=== PATIENT | female | born 1990 | race Caucasian/White ===

== ENCOUNTER 2020-08-18 10:15 | Emergency (ER) | payer OTHER, SELFPAY ==
--- NOTE | ~2020-08-18 | XR_ITS ---
EXAMINATION: XR chest 2V EXAM DATE: 08/18/2020 10:58 INDICATION: Shortness of breath and cough. TECHNIQUE: Frontal and lateral projections of the chest obtained and reviewed. There is no prior booker dy for comparison. FINDINGS: The lungs are clear. There are no pleural effusions. The cardiomediastinal silhouette is within normal limits. There is no pneumothorax suspected. The bones and soft tissues are unremarkab le. IMPRESSION: No acute cardiopulmonary findings. Reviewed, dictated and finalized at location B. ER [employer]
[2020-08-18 10:24] VITALS: BP 151/93; PULSE 108; RESP 24; TEMP 36.7; O2SAT 100
--- NOTE | 2020-08-18 10:46 | ED.URI ---
HPI - URI/Sore Throat General Chief Complaint: Upper Respiratory Infection Stated Complaint: CP/SOB Time Seen by Provider: 08/18/20 10:40 Source: patient Mode of arrival: ambulatory Limitations: no limitations History of Present Illness HPI Narrative: Ann Marie Thomas is a 30 yo female with no known prior medical conditions who comes to [facility] care with complaints of shortness of breath and fatigue since . Sent for Covid testing on Sunday by [facility], no results for 5 to 7 days, will schedule for today at [place] to get bilateral results Related Data Allergies Allergy/AdvReac Type Severity Reaction Status Date / Time No Known Allergies Allergy Verified 08/18/20 10:39 Review of Systems Review of Systems: Narrative: CONSTITUTIONAL: Denies fever, chills, sweats. Has fatigue EYES: Denies visual changes, redness, discharge. ENT: Denies rhinorrhea, congestion, sore throat, otalgia. CARDIOVASCULAR: Denies chest pain, palpitations, edema. RESPIRATORY: Has shortness of breath, no wheezing, no cough GASTROINTESTINAL: Denies abdominal pain, nausea, vomiting, diarrhea. GENITOURINARY: Denies dysuria, hematuria, abnormal discharge SKIN: Denies rash or itching. NEUROLOGIC: Denies numbness, or focal weakness. PSYCHIATRIC: Denies anxiety or depression. PMFSH Past Medical History Medical History No acute medical problems Family History Family History (Updated 08/18/20 @ 10:51 by Doris Coates CNP) Other No acute medical problems Social History Social History (Updated 08/18/20 @ 10:55 by Doris Coates CNP) Smoking status: Never smoker Alcohol intake: current Comments At time of signature, I agree with nursing past medical, surgical, social and family history. There is no relevant family history pertinent to the presenting complaint. Patient's blood pressure is elevated he has no PCP set of referral to her primary care physician Exam Narrative: Exam Narrative: GENERAL: This is a well-nourished, well-developed patient, in mild distress. HEAD: normocephalic, atraumatic. EYES: Sclera clear/white. Vision is grossly intact. EARS: External ears normal, auditory canals clear and without drainage, TMs normal without perforation. Hearing grossly intact. NOSE: External nose normal without nasal discharge, nares without redness, no rhinorrhea. THROAT: Mucous membranes moist, posterior pharynx pink NECK: Neck supple, CARDIOVASCULAR: Regular rate and rhythm without murmurs, gallops, or rubs. RESPIRATORY: Clear to auscultation. Breath sounds equal bilaterally. No wheezes, rales, or rhonchi. GASTROINTESTINAL: Abdomen soft SKIN: warm, intact with no suspicious lesions or rash, good texture and turgor. NEURO: awake, alert, and oriented to person, place and time. There were no obvious focal neurologic abnormalities. Steady gait EXTREMITIES: Normal range of motion. BACK: Nontender without deformity Course Course Emergency Course: Patient came here for evaluation of shortness of breath has had cold symptoms since 1223 and was tested on Sunday with no results received as of yet Chest x-ray done - no acute cardiopulmonary findings Refer to [facility] for Covid test Started on albuterol inhaler and Claritin Vital Signs Vital signs: Vital Signs Temperature 98.1 F 08/18/20 10:24 Pulse Rate 108 H 08/18/20 10:24 Respiratory Rate 24 H 08/18/20 10:24 Blood Pressure 151/93 H 08/18/20 10:24 Pulse Oximetry 100 08/18/20 10:24 Temperature 98.1 F 08/18/20 10:24 Pulse Rate 108 H 08/18/20 10:24 Respiratory Rate 24 H 08/18/20 10:24 Blood Pressure 151/93 H 08/18/20 10:24 Pulse Oximetry 100 08/18/20 10:24 MDM - URI/Sore Throat Differential Diagnosis Differential diagnosis: Likely upper respiratory infection, viral infection and other Discharge Plan Discharge Clinical Impression: Upper respiratory infection Qualifiers: URI typ
== END 2020-08-18 11:25 | disposition home or self-care (01) ==
PROVIDERS: Emergency Provider Nurse Practitioner
DX: J06.9 Acute upper respiratory infection, unspecified (principal); Z20.828 Contact with and (suspected) exposure to other viral communicable diseases
CPT/HCPCS: 71046; 99213; G0463

== ENCOUNTER 2022-04-15 17:47 | Emergency (ER) | payer OTHER, MEDICAID, SELFPAY ==
[2022-04-15 17:52] VITALS: BP 157/95; PULSE 114; RESP 20; TEMP 36.2; O2SAT 100
[2022-04-15 17:58] VITALS: BP 157/95; PULSE 114; RESP 20; TEMP 36.2; O2SAT 100
--- NOTE | 2022-04-15 18:02 | ED.URI ---
HPI - URI/Sore Throat General Chief Complaint: Ear Stated Complaint: Left Ear Pain Time Seen by Provider: 04/15/22 18:03 Source: patient, RN notes reviewed and old records reviewed Mode of arrival: ambulatory Limitations: no limitations History of Present Illness HPI Narrative: 32-year-old female presents to the [facility] with complaints of left ear pain for the last 4 days. Has been using Q-tips. Denies any fevers. No loss of hearing. No nausea vomiting diarrhea or dizziness. Denies headaches. Has taken Tylenol with minimal relief. MD elicited complaint: other (left ear pain) Related Data Allergies Allergy/AdvReac Type Severity Reaction Status Date / Time No Known Allergies Allergy Verified 04/15/22 17:57 Review of Systems Review of Systems: All systems reviewed & are unremarkable except as noted in HPI and below Constitutional: Constitutional: Reports no additional constitutional complaints, Denies chills and Denies fever(s) Eyes: Eyes: Reports no additional eye complaints ENT: Reports as per HPI (left ear pain) Cardiovascular: Cardiovascular: Reports no additional cardiovascular complaints Respiratory: Respiratory: Reports no additional respiratory complaints Gastrointestinal: Gastrointestinal: Reports no additional gastrointestinal complaints Musculoskeletal: Musculoskeletal: Reports no additional musculoskeletal complaints Integumentary/Breasts: Skin/Breast: Reports system reviewed and no additional complaints, except as docu Neurologic: Reports system reviewed and no additional complaints, except as documented Psychiatric: Psychiatric: Reports no additional psychiatric complaints Allergic/Immunologic: Allergic/Immunologic: Reports no additional allergic/immunologic complaints PMFSH Past Medical History Medical History No acute medical problems Family History Family History Other No acute medical problems Social History Social History Smoking status: Never smoker Alcohol intake: current Comments At the time of my signature, I reviewed and agree with the nursing past medical, surgical, social, and family history. There is no relevant family history pertinent to the patient complaint. Exam Const: General: healthy appearing, no acute distress and alert Nutritional Appearance: well nourished and obese Orientation/consciousness: patient oriented x3 Limitations: no limitations HENMT: Head: normal to inspection Ears: external ears normal, TM's normal bilaterally and Abnormal EAC present erythema on the left and edema on the left; no cerumen impaction and no EA tenderness Eyes: General: appearance normal, both eyes and all related structures Conjunctivae: conjunctivae normal Pupils: Equal, round and reactive pupils present Neck: Neck: normal visual inspection, no lymphadenopathy and no meningeal signs Chest: Chest palpation & inspection: normal inspection of the chest Resp: Effort & Inspection: normal respiratory effort and no use of accessory muscles Auscultation: clear to auscultation bilaterally, no crackles, no rales, no rhonchi and no wheezes Cardio: Rate: regular rate Rhythm: regular rhythm Back/Spine/Pelvis: Cervical Spine: normal cervical lordosis Thoracic/Lumbar Spine: thoracic and lumbar spine normal to inspection Skin: General skin exam: normal color Rashes: no rashes Wounds: no wounds Neuro: General: patient oriented x3, moves all extremities, no meningeal signs and no focal motor deficits Cranial nerves: Yes Equal, round and reactive pupils present Speech: normal speech Gait exam (Neuro): Normal gait present Extrem: General: normal to inspection, full ROM and capillary refill normal Psych: Appearance: grossly normal and well kempt Mental Status: mental status grossly normal Affect: normal affect Att
== END 2022-04-15 18:14 | disposition home or self-care (01) ==
PROVIDERS: Emergency Provider Nurse Practitioner
DX: S00.412A Abrasion of left ear, initial encounter (principal); X58.XXXA Exposure to other specified factors, initial encounter
CPT/HCPCS: 99213; G0463

== ENCOUNTER 2024-05-15 08:39 | Emergency (ER) | payer OTHER, SELFPAY ==
--- NOTE | ~2024-05-15 | XR_ITS ---
XR chest 2V Ordering provider: Henny Louie NP History: 34 years Female with . cough and wheezing . Comparison: August 18, 2020 FINDINGS: MEDIASTINUM: The cardiac silhouette is not enlarged. Slightly prominent alli. LUNGS: No infiltrates, effusions or pneumothorax. OTHER: No free air under the diaphragm. IMPRESSION: No acute cardiopulmonary pathology. Reviewed, dictated and finalized at location A.
[2024-05-15 08:49] VITALS: BP 140/90; PULSE 93; RESP 20; TEMP 36.8; O2SAT 95
--- NOTE | 2024-05-15 09:05 | ED.URI ---
HPI - URI/Sore Throat General Chief Complaint: Upper Respiratory Infection Stated Complaint: cough causing hard to breathe Time Seen by Provider: 05/15/24 09:05 Source: patient Mode of arrival: ambulatory Limitations: no limitations History of Present Illness HPI Narrative: 34-year-old female presents with complaint of cough for 4 weeks. Afebrile. has not seen primary care physician for this complaint. Has tried [id number] Robitussin and DayQuil with no relief of symptoms. This morning feels short of breath. 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 today but states short of breath and felt like she needed breathing treatment. All systems reviewed and negative except as noted above. Related Data Home Medications Medication Instructions Recorded Confirmed buspirone 15 mg tablet mg 05/15/24 duloxetine 30 mg capsule,delayed mg PO 05/15/24 release escitalopram oxalate 20 mg tablet mg 05/15/24 hydroxyzine HCl 25 mg tablet mg 05/15/24 losartan 25 mg tablet mg 05/15/24 Allergies Allergy/AdvReac Type Severity Reaction Status Date / Time No Known Allergies Allergy Verified 04/15/22 17:57 Review of Systems Review of Systems: CONSTITUTIONAL: Denies fever, chills, or sweats. EYES: Denies visual changes, redness, or discharge. ENT: Denies rhinorrhea, congestion, sore throat, or otalgia. CARDIOVASCULAR: Denies chest pain, palpitations, or edema. RESPIRATORY: Reports cough and dyspnea with exertion. GASTROINTESTINAL: Denies abdominal pain, nausea, vomiting, or diarrhea. GENITOURINARY: Denies dysuria or hematuria. SKIN: Denies rash or itching. MUSCULOSKELETAL: Denies back pain, joint pain, or myalgia. NEUROLOGIC: Denies headache, numbness, or weakness. PSYCHIATRIC: Denies anxiety or depression. All other systems reviewed are negative, except as documented in HPI. [facility] Past Medical History Medical History No acute medical problems Family History Family History Other No acute medical problems Social History Social History Smoking status: Never smoker Alcohol intake: current Comments At time of signature, agree with nursing past medical, surgical, social and family history. There is no relevant family history pertinent to the presenting complaint. Exam Narrative: GENERAL: This is a well-nourished, well-developed patient, in no apparent distress. HEAD: normocephalic, atraumatic. EYES: PERRL. Sclera clear/white. Vision is grossly intact. EARS: External ears normal, auditory canals clear and without drainage, TMs normal without perforation. Hearing grossly intact. NOSE: External nose normal with no obvious nasal discharge, nares without redness, no rhinorrhea. THROAT: Mucous membranes moist, posterior pharynx clear. NECK: Neck supple, non-tender without lymphadenopathy, masses or thyromegaly. CARDIOVASCULAR: Regular rate and rhythm without murmurs, gallops, or rubs. RESPIRATORY: coarse and tight throughout all lung [place]. Breath sounds equal bilaterally. No wheezes, rales, or rhonchi. SKIN: warm, Dry, intact with no suspicious lesions or rash, good texture and turgor. NEURO: awake, alert, and oriented to person, place and time. There were no obvious focal neurologic abnormalities. EXTREMITIES: No joint tenderness, effusion, or edema noted. Course Course Level of Care: Express Care Visit Reevaluation(s) Reevaluation #1: Continues to have mildly coarse lung sounds on expiration throughout all lung [place]. Patient reporting shortness of breath improved. Vital Signs Vital signs: Vital Signs Temperature 36.8 C 05/15/24 08:49 Pulse Rate 93 05/15/24 08:49 Respiratory Rate 20 05/15/24 08:49 Blood Pressure 140/90 05/15/24 08:49 Pulse Oximetry 95 05/15/24 08:49 Oxygen
[2024-05-15] MEDS: predniSONE 20 MG TABLET 40 MG PO (09:23)
[2024-05-15] MEDS: IPRATROPIUM 0.5 MG/ALBUTEROL SULFATE 2.5 MG AMPUL.NEB 3 ML INHALATION (09:23)
== END 2024-05-15 10:05 | disposition home or self-care (01) ==
PROVIDERS: Emergency Provider Nurse Practitioner Family; PCP Physician Assistant
DX: J20.9 Acute bronchitis, unspecified (principal)
CPT/HCPCS: 71046; 99213; G0463; J7512

== ENCOUNTER 2024-08-05 17:30 | Emergency (ER) | payer OTHER, SELFPAY ==
--- NOTE | ~2024-08-05 | XR_ITS ---
EXAMINATION: XR chest 2V DATE: 08/05/2024 19:02 INDICATION: Cough and shortness of breath. TECHNIQUE: Frontal and lateral views of the chest were obtained. COMPARISON: Chest 2 views 05/15/2024 FINDINGS: A calcified left lung nodule and calcified left hilar lymph nodes are consistent with old g ranulomatous disease. No pleural effusion or pneumothorax. The heart size is normal. IMPRESSION: 1. No acute cardiopulmonary disease. Reviewed, dictated and finalized at location A. 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
[2024-08-05 17:42] VITALS: BP 145/80; PULSE 125; RESP 18; TEMP 37.8; O2SAT 96
--- NOTE | 2024-08-05 18:45 | ED_ITS ---
HPI - General Adult General Chief complaint: Upper Respiratory Infection Stated complaint: Cough/Congestion/Shortness of Breath Source: patient Mode of arrival: ambulatory Limitations: no limitations History of Present Illness HPI narrative: Patient presents for evaluation of sick symptoms for last 3 days. Her initial symptoms were sinus congestion and cough. Yesterday she developed a fever, sore throat, fatigue, SOB, nausea and vomiting. Denies any diarrhea. Her daughter currently is sick. She does not smoke. She has been taking mucinex for her symptoms. She has a lung nodule and is under the care of pulmonology. She states her imaging showed stability of the nodule in May of this year so decision was made to space out her serial imaging further. Related Data Home Medications ?Medication ?Instructions ?Recorded ?Confirmed ?Last Taken ?Type buspirone 15 mg tablet mg 05/15/24 Unknown History losartan 25 mg tablet mg 05/15/24 Unknown History amlodipine 10 mg tablet mg 08/05/24 Unknown History bupropion HCl 150 mg tablet,12 hr mg PO 08/05/24 Unknown History sustained-release fluticasone 100 mcg-salmeterol 50 inhalation 08/05/24 Unknown History mcg/dose blistr powdr for inhalation (Advair Diskus) fluticasone 250 mcg-salmeterol 50 inhalation 08/05/24 Unknown History mcg/dose blistr powdr for inhalation (Advair Diskus) losartan 100 mg tablet mg 08/05/24 Unknown History methylprednisolone 4 mg tablets in mg 08/05/24 Unknown History a dose pack Allergies Allergy/AdvReac Type Severity Reaction Status Date / Time No Known Allergies Allergy Verified 08/05/24 17:41 Review of Systems Review of Systems: CONSTITUTIONAL: Reports fever and fatigue. Denies chills, or sweats. EYES: Denies visual changes, redness, or discharge. ENT: Reports sinus congestion sore throat. CARDIOVASCULAR: Denies chest pain, palpitations, or edema. RESPIRATORY: Reports cough and shortness of breath GASTROINTESTINAL: Reports nausea and vomiting. Denies abdominal pain or diarrhea. GENITOURINARY: Denies dysuria or hematuria. SKIN: Denies rash or itching. MUSCULOSKELETAL: Denies back pain, joint pain, or myalgia. NEUROLOGIC: Denies headache, numbness, dizziness, or weakness. PSYCHIATRIC: Denies anxiety or depression. [facility] Past Medical History Medical History (Updated 08/05/24 @ 19:27 by Zhang Arrieta [facility], ) Pulmonary nodule Diabetes Hypertension Surgical History Surgical History History of appendectomy Family History Family History Other No acute medical problems Social History Social History Smoking status: Never smoker Alcohol intake: current Substance use: never Living arrangements: with family Gender identity (if verbalized by the patient): Female Spiritual care concerns: No Exam Narrative: GENERAL: Appears acutely ill but nontoxic HEAD: Normocephalic, atraumatic. EYES: PERRLA and EOMI. ENT: Nares clear, no rhinorrhea or epistaxis. Mucous membranes moist. There is mild posterior pharyngeal erythema.. Bilateral TMs pearly cummings nonbulging NECK: Supple. No adenopathy or masses. No carotid bruits or JVD CHEST: Cough present on exam. Clear to auscultation. No respiratory distress. No wheezes rales or rhonchi HEART: Rate 120. Regular rhythm. No murmur heard. Normal peripheral pulses. ABDOMEN: Soft, nontender, nondistended, normal active bowel sounds. EXTREMITIES: Normal range of motion. No edema. SKIN: Warm, dry, no rash. NEURO: No focal deficits. Alert and oriented x3. PSYCH: Normal mood and affect. Course Course Emergency Course: This is a 34-year-old female who presented for evaluation of sick symptoms. COVID, flu, strep were negative. Chest x-ray negative. She was hydrated. Her rate improved. Exam is consistent with acute viral syndrome. Will discharge with Tessalon and Zofran. Follow-up primary provider. Go to the ER for worsening symptoms. Patient in agreement plan of care. Level of Care: Express Care Visit Vital Signs Vital signs: Vital Signs Temperature 37.8 C H 08/05/24 17:42 Pulse Rate 125 H 08/05/24 17:42 Respiratory Rate 18 08/05/24 17:42 Blood Pressure 145/80 H 08/05/24 17:42 Pulse Oximetry 96 08/05/24 17:42 Oxygen Delivery Room Air 12/17/24 17:42 Temperature 37.8 C H 08/05/24 17:42 Pulse Rate 125 H 08/05/24 17:42 Respiratory Rate 18 08/05/24 17:42 Blood Pressure 145/80 H 08/05/24 17:42 Pulse Oximetry 96 08/05/24 17:42 Oxygen Delivery Room Air 08/05/24 17:42 Medical Decision Making Vital Signs Vital Signs: Vital Signs Temperature 37.8 C H 08/05/24 17:42 Pulse Rate 125 H 08/05/24 17:42 Respiratory Rate 18 08/05/24 17:42 Blood Pressure 145/80 H 08/05/24 17:42 Pulse Oximetry 96 08/05/24 17:42 Oxygen Delivery Room Air 08/05/24 17:42 Temperature 37.8 C H 08/05/24 17:42 Pulse Rate 125 H 08/05/24 17:42 Respiratory Rate 18 08/05/24 17:42 Blood Pressure 145/80 H 08/05/24 17:42 Pulse Oximetry 96 08/05/24 17:42 Oxygen Delivery Room Air 08/05/24 17:42 Imaging Data Radiologist's impression: EXAMINATION: XR chest 2V DATE: 08/05/2024 19:02 INDICATION: Cough and shortness of breath. TECHNIQUE: Frontal and lateral views of the chest were obtained. COMPARISON: Chest 2 views 05/15/2024 FINDINGS: A calcified left lung nodule and calcified left hilar lymph nodes are consistent with old granulomatous disease. No pleural effusion or pneumothorax. The heart size is normal. IMPRESSION: 1. No acute cardiopulmonary disease. Discharge Plan Discharge Clinical Impression: Acute viral syndrome Patient Disposition: Home, Self-Care Condition: Stable Instructions: Antibiotic Form, Viral Syndrome (ED) Patient Language: Kinyarwanda Prescriptions: New ondansetron 4 mg tablet,disintegrating 4 mg PO Q6H PRN (Reason: nausea and vomiting) Qty: 20 0RF benzonatate 200 mg capsule 200 mg PO TID PRN (Reason: cough) Qty: 30 0RF No Action losartan 25 mg tablet buspirone 15 mg tablet albuterol sulfate 90 mcg/actuation HFA aerosol inhaler 2 puff inhalation Q4-6H PRN (Reason: shortness of breath or wheezing) Qty: 8.5 0RF (DME) Aerochamber Plus Z Stat Spacer See Rx Instructions .Route Qty: 1 0RF Rx Instructions: As directed bupropion HCl 150 mg tablet sustained-release 12 hr PO fluticasone propion-salmeterol [Advair Diskus] 250-50 mcg/dose blister with device INHALATION amlodipine 10 mg tablet fluticasone propion-salmeterol [Advair Diskus] 100-50 mcg/dose blister with device INHALATION methylprednisolone 4 mg tablets,dose pack losartan 100 mg tablet Follow-up/Referrals: Chana,JAVED Moses [Primary Care Provider] - Time of Disposition: 19:28
[2024-08-05] MEDS: ACETAMINOPHEN 500 MG TABLET 1000 MG PO (18:55)
[2024-08-05 19:39] LABS: EDCOVIDSCREEN Negative (Negative); EDINFLUASCREEN Negative (Negative); EDINFLUBSCREEN Negative (Negative); EDSTREPNEGPOS1 Negative (Negative)
== END 2024-08-05 19:36 | disposition home or self-care (01) ==
PROVIDERS: Emergency Provider Nurse Practitioner; PCP Physician Assistant
DX: B34.9 Viral infection, unspecified (principal); Z20.822 Contact with and (suspected) exposure to COVID-19; E11.9 Type 2 diabetes mellitus without complications; I10 Essential (primary) hypertension; R91.1 Solitary pulmonary nodule
CPT/HCPCS: 71046; 87081; 87426; 87804; 87880; 99213; A9270; G0463

== ENCOUNTER 2024-11-30 17:03 | Emergency (ER) | payer OTHER, SELFPAY ==
--- OUTSIDE RECORDS SUMMARY | 2024-11-30 17:05 | XMS_ITS | Clinical Summary ---
Author Organization [facility] Address [address] [place] [address] Care Team Providers Care Flash Welder Name Role Phone Rudolph Zayas Primary Care Provider [phone] Allergies No known active allergies Medications Mirena IUD 08/30/19 23 Active metFORMIN (GLUCOPHAGE) 500 mg tabletIndications: Uncontrolled diabetes mellitus with hypoglycemia, without long-term current use of insulin (HCC) Take 1 tablet (500 mg total) by mouth daily with breakfast 90 tablet 4 12/19/19 23 Active blood-glucose sensor deviceIndications: Uncontrolled diabetes mellitus with hypoglycemia, without long-term current use of insulin (HCC) 1 Application every 14 (fourteen) days 10 each 12/19/19 23 Active compression socks, x-large miscIndications:Ed giancarlo of right foot 1 Package daily Apply compression socks each day before work. Remove at night. 2 each 01/20/20 23 Active furosemide (LASIX) 20 mg tabletIndications: Lower extremity edema Take 1 tablet (20 mg total) by mouth daily 90 tablet 4 01/30/20 23 Active gabapentin (NEURONTIN) 300 mg capsuleIndications :Neuropathy Take 1 capsule (300 mg total) by mouth 2 (two) times a day 60 capsule 11 02/15/20 23 Active meclizine (ANTIVERT) 25 mg tablet Take 1 tablet (25 mg total) by mouth 3 (three) times a day as needed for dizziness 30 tablet 02/15/20 23 Active ciprofloxacin (CILOXAN) 0.3 % ophthalmic solution 02/17/20 23 Active escitalopram (LEXAPRO) 20 mg tabletIndications: Anxiety and depression Take 0.5 tablets (10 mg total) by mouth daily 90 tablet 3 02/27/20 23 Active Additional Information Patient not taking.Reported on 05/21/2024 ibuprofen (ADVIL,MOTRIN) 400 mg tablet Take 1 tablet (400 mg total) by mouth every 6 (six) hours as needed for pain 0 03/05/20 23 Active Januvia 100 mg tablet Take 1 tablet (100 mg total) by mouth daily for 90 days 04/02/20 23 Active albuterol HFA (PROVENTIL HFA,VENTOLIN HFA,PROAIR HFA) 90 mcg/actuation inhaler Inhale 1 puff every 4 (four) hours as needed 04/24/20 23 Active busPIRone (BUSPAR) 15 mg tablet TAKE 1/2 (ONE-HALF) TABLET BY MOUTH TWICE DAILY FOR 7 DAYS THEN TAKE 1 TAB TWICE DAILY THEREAFTER 05/22/20 23 Active hydrOXYzine (ATARAX) 25 mg tablet Take 1 tablet (25 mg total) by mouth 3 (three) times a day as needed 05/23/20 23 Active losartan (COZAAR) 25 mg tablet Take 1 tablet (25 mg total) by mouth daily for 90 days 10/19/19 24 Active amLODIPine (NORVASC) 5 mg tablet Take 1 tablet (5 mg total) by mouth daily for 90 days 05/27/20 24 Active methylPREDNISolone (Medrol, Seth,) 4 mg Dosepack follow package directions 1 packet 08/05/20 24 Active albuterol HFA (ProAir HFA) 90 mcg/actuation inhaler Inhale 2 puffs every 4 (four) hours as needed for wheezing 8.5 g 11 08/06/20 24 025 Active buPROPion SR (WELLBUTRIN SR) 150 mg 12 hr tablet Take 1 tablet (150 mg total) by mouth 2 (two) times a day 05/26/20 24 Active ondansetron ODT (ZOFRAN-ODT) 4 mg disintegrating tablet every 8 (eight) hours as needed 08/06/20 24 Active benralizumab (FASENRA) 30 mg/mL auto-injectorIndic ations:Severe persistent asthma with acute exacerbation (HCC) Inject 1 mL (30 mg total) under the skin every 4 (four) weeks 1 mL 2 08/27/19 25 Active benralizumab (FASENRA) 30 mg/mL auto-injectorIndic ations:Severe persistent asthma with acute exacerbation (HCC) Inject 1 mL (30 mg total) under the skin every 8 (eight) weeks 1 mL 11 08/27/19 25 Active fluticasone-umecli din-vilanter (Trelegy Ellipta) 200-62.5-25 mcg inhaler Inhale 1 puff daily Rinse and spit after use 60 each 6 09/01/19 25 Active Active Problems Problem Noted Date Diagnosed Date Pulmonary nodule 08/08/2023 Assessment & Plan (05/21/2024 10:04 AM CDT): PET-CT with minimal uptake to her left upper lobe pulmonary nodule Her repeat CT in September of 2023 demonstrated no changes We will repeat a CT to assess for stability Assessment & Plan (08/08/2023 2:28 PM COLLECTIONS SPECIALIST): PET-CT with minimal uptake not significant. Repeat CT chest with contrast 3 months from PET-CT, due August 2023 Discussed signs and symptoms that require emergent evaluation Reactive airway disease 08/08/2023 Assessment & Plan (05/21/2024 10:04 AM CDT): Her pulmonary function testing was negative and her methacholine challenge was borderline. I am suspicious as her cough and shortness of breath does not respond to typical treatment methods of prednisone and albuterol. She may continue albuterol 2 puffs every 4-6 hours as needed only, we have discussed indications for use I will reassess her in 6 weeks and if her respiratory symptoms remain we may trial ICS maintenance therapy Assessment & Plan (08/08/2023 2:26 PM COLLECTIONS SPECIALIST): Pulmonary function testing negative. Some symptoms consistent with asthma. Check methacholine challenge testing to rule out reactive airway disease. Continue albuterol as needed, discussed indications for use. Unilateral edema of lower extremity 04/10/2023 ALEJANDRO (obstructive sleep apnea) 04/10/2023 Assessment & Plan (05/21/2024 10:05 AM CDT): We have discussed the risks of uncorrected sleep apnea I have urged her to make a follow-up appointment with sleep medicine MCKAY (dyspnea on exertion) 04/10/2023 Assessment & Plan (05/21/2024 10:05 AM CDT): This is chronic and multifactorial I have advised increased activity and weight loss Assessment & Plan (08/08/2023 2:29 PM COLLECTIONS SPECIALIST): Unchanged. Currently undergoing further workup. Methacholine challenge as above She was referred to Bariatrics for possible intervention Encounter to establish care 12/18/2022 Assessment & Plan (12/18/2022 8:59 AM CDT): Welcome. I look forward to being your PCP Uncontrolled diabetes mellit us with hypoglycemia, without long-term current use of insulin 12/18/2022 Assessment & Plan (12/18/2022 8:59 AM CDT): Repeat A1c. Start Metformin. Keep log of blood glucose levels. Ordered Manjula sensor Essential hypertension 09/27/2022 Assessment & Plan (09/27/2022 10:58 AM COLLECTIONS SPECIALIST): Chronic. Goal <130/80. -Start Olemsartan daily. Risks/benefits and alternatives discussed -low-salt diet. Handout given -follow-up 3 months for re-evaluation Type 2 diabetes mellitus wit hout complication, without long-term current use of insulin 09/27/2022 Assessment & Plan (09/27/2022 10:58 AM COLLECTIONS SPECIALIST): Dm type 2 with ?complications(diabetic neuropathy) Recent A1C. No Neuropathy on foot exam Continue low carb diet Next A1C - 12/2022 Most recent Microalbumin - Refer to [employer] for counseling Dilated retinal eye exam -due now BP not at goal <130/80 off med - will start ARB Vaccines - PCV, Flu, COVID recommended Anxiety and depression 09/27/2022 Assessment & Plan (09/27/2022 10:59 AM COLLECTIONS SPECIALIST): Chronic and stable. PHQ 2 score 2. No SI/HI. Patient will continue to follow with psychiatry for this current condition Class 3 severe obesity due t o excess calories with serious comorbidity and body mass index (BMI) of 50.0 to 59.9 in adult 09/27/2022 Encounters Date Type Department Care Team Description 09/02/2024 Telephone [facility] Pulmonary at [address] [place] [address] Sarah De La Rosa LPN Prior Auth 09/01/2024 Orders Only [facility] Pulmonary at [address] [place] [id number] Sarah De La Rosa LPN from Last 3 Months Immunizations Immunization Administration Dates Next Due Influenza, Unspecified 12/18/2022(Deferred: [facility] ent Refused) Surgical History Surgery Date Site/Laterality Comments APPENDECTOMY Medical History Medical History Date Comments Migraines Diabetes mellitus (HCC) Hypertension Anxiety Depression 2012 Type 2 diabetes mellitus (HCC) Fibromyalgia, primary Morbid obesity (HCC) Family History Medical History Relation Name Comments Diabetes Father Hypertension Father Diabetes Father's Sister Mita Heart attack Father's Sister Mita Cancer Maternal Grandfather Tk Arthritis Maternal Grandmother Maximus Diabetes Maternal Grandmother Maximus Hypertension Maternal Grandmother Maximus Diabetes Mother Tang Drug abuse Mother Tang Hypertension Mother Tang Depression Mother's Brother Tk Diabetes Paternal Grandfather Rohith Heart attack Paternal Grandfather Rohith Diabetes Paternal Grandmother Lianna Mental illness Paternal Grandmother Lianna Obesity Paternal Grandmother Lianna Relation Name Status Comments Father Father's Sister Mita Maternal Grandfather Tk Maternal Grandmother Maximus Mother Tang Mother's Brother Tk Paternal Grandfather Rohith Paternal Grandmother Lianna Social History Tobacco Use Types Packs/Day Years Used Date Smoking Tobacco: Never Smokeless Tobacco: Never Tobacco Cessation:Counseling Given: Not Answered Humiliation, Afraid, Rape, and Kick questionnair e Answer Date Recorded Within the last year, have y ou been afraid of your partner or ex-partner? No 02/26/2023 Within the last year, have y ou been humiliated or emotionally abused in other ways by your partner or ex-partner? No Within the last year, have y ou been kicked, hit, slapped, or otherwise physically hurt by your partner or ex-partner? No 02/26/2023 Within the last year, have y ou been raped or forced to have any kind of sexual activity by your partner or ex-partner? No 02/26/2023 Social Connection and Isolat ion Panel [NHANES] Answer Date Recorded In a typical week, how many times do you talk on the phone with family, friends, or neighbors? More than three times a week 02/26/2023 How often do you get togethe r with friends or relatives? More than three times a week 02/26/2023 How often do you attend chur ch or methodist services? Never 02/26/2023 Do you belong to any clubs o r organizations such as orthodox groups, unions, fraternal or athletic groups, or school groups? No 02/26/2023 How often do you attend meet ings of the clubs or organizations you belong to? Never 02/26/2023 Are you , , di vorced, , never , or living with a partner? 02/26/2023 AUDIT-C Answer Date Recorded Q1: How often do you have a drink containing alcohol? Never 11/08/2023 Q2: How many drinks containi ng alcohol do you have on a typical day when you are drinking? Patient does not drink Q3: How often do you have si x or more drinks on one occasion? Never 11/08/2023 Overall Financial Resource Strain (CARDIA) Answe r Date Recorded How hard is it for you to pa y for the very basics like food, housing, medical care, and heating? Not very hard 02/26/2023 PHQ-2 Answer Date Recorded PHQ-2 Total Score (If total score is 3 or more points, staff should administer the PHQ-9) 6 02/26/2023 [facility] - Occupational Stress Questionnaire Answer Date Recorded Do you feel stress - tense, restless, nervous, or anxious, or unable to sleep at night because your mind is troubled all the time - these days? Rather much 02/26/2023 Exercise Vital Sign Answer Date Recorde d On average, how many days pe r week do you engage in moderate to strenuous exercise (like a brisk walk)? 3 days 02/26/2023 On average, how many minutes do you engage in exercise at this level? 20 min 02/26/2023 Hunger Vital Sign Answer Date Recorded Within the past 12 months, y ou worried that your food would run out before you got the money to buy more. Never true 02/27/20 23 Within the past 12 months, t he food you bought just didn't last and you didn't have money to get more. Never true 02/26/2023 PRAPARE - Transportation Answer Date Re corded In the past 12 months, has l ack of transportation kept you from medical appointments or from getting medications? No 02/17 In the past 12 months, has l ack of transportation kept you from meetings, work, or from getting things needed for daily living? No 02/26/2023 Housing Stability Vital Sign Answer Leroy e Recorded In the last 12 months, was t here a time when you were not able to pay the mortgage or rent on time? No 02/26/2023 In the last 12 months, how many places have you lived? 2 02/26/2023 In the last 12 months, was t here a time when you did not have a steady place to sleep or slept in a [place] [facility] [place] (including now)? No 02/26/2023 Personal Safety Answer Date Recorded Have you ever been in or are you currently in a harmful physical or emotional relationship or is someone making you feel afraid or unsafe? Denies 06/24/2024 Comments No Sex and Gender Information Value Date Recorded Sex Assigned at Not on file Legal Sex Female 10:17 AM COLLECTIONS SPECIALIST Gender Identity Female 01/31/2024 9:44 AM CDT Sexual Orientation Straight 01/31/2024 9: 44 AM CDT Occupation Industry Job Start Date Job End Date [employer] Not on file Not on file Not on file Obstetrics History Para Term AB IAB SAB Ectopic Multiple Livin g Live Births 1 1 1 1 1 Date Outcome GA Total Labor Labor/2nd/3rd Weight Sex Type Anes PTL Pita A1 A5 Name Clin 2015 Term 39w 0d 2.778 kg (6 lb 2 oz) F Vag-S pont Living Last Filed Vital Signs Vital Sign Reading Time Taken Comments Blood Pressure 144/88 08/07/2024 11:26 AM COLLECTIONS SPECIALIST Pulse 112 08/07/2024 11:26 AM COLLECTIONS SPECIALIST Temperature 36.2 C (97.2 F) 08/07/2024 11:26 AM COLLECTIONS SPECIALIST Respiratory Rate 18 06/24/2024 1:28 PM COLLECTIONS SPECIALIST Oxygen Saturation 95% 08/07/2024 11: 26 AM COLLECTIONS SPECIALIST Inhaled Oxygen Concentration - - Weight 136.1 kg (300 lb 1.6 oz) 024 11:26 AM COLLECTIONS SPECIALIST Height 157.5 cm (5' 2 ) 08/07/2024 11:2 6 AM COLLECTIONS SPECIALIST Body Mass Index 54.89 08/07/2024 11:26 AM COLLECTIONS SPECIALIST Plan of Treatment Health Maintenance Due Date Last Done Comments Hepatitis C Screening 1990 Varicella Vaccines (1 of 2 - 13+ 2-dose series) 2003 Hepatitis B Screening 01/05/2008 Pneumococcal vaccine <65 (1 of 2 - PCV) 2009 Hemoglobin A1C 06/20/2023 12/18/2022, 08/29/2022 Cervical Cancer Screening 08/29/2023 08/29/2022 Regular Well Visit/Exam 18-64 08/29/2023 08/29/2022 Albumin Creatinine Ratio, Urine 12/19/2023 12/18/2022 Dilated Eye Exam 12/19/2023 12/18/2022 Lipid Panel 12/19/2023 12/18/2022, 08/29/2022 Foot Exam 02/15/2024 02/14/2023, 09/27/2022 Depression Screening 02/27/2024 02/26/2023, 02/26/2023, 02/14/2023, Additional history exists Covid-19 Vaccine ( season) 2024 12/05/2020, 11/14/2020 eGFR 06/24/2025 06/24/2024, 1001/2024, 03/04/2023, Additional history exists DTaP/Tdap/Td Vaccine (3 - Td or Tdap) 01/24/2026 01/25/2016, 07/14/2015 Influenza Vaccine Completed 06/25/2024, 08/27/2023 HPV Vaccines Aged Out No longer eligi ble based on patient's age to complete this topic Procedures Procedure Name Priority Date/Time Associated Diagnosis Comments EGFR STAT 06/24/2024 1:35 PM COLLECTIONS SPECIALIST ALBUMIN CREATININE RATIO, URINE Routine 12/18/2022 4:30 PM CDT Encounter to establish care Uncontrolled diabetes mellitus with hypoglycemia, without long-term current use of insulin (HCC) HEMOGLOBIN A1C Routine 12/18/2022 1:10 PM CDT Encounter to establish care Uncontrolled diabetes mellitus with hypoglycemia, without long-term current use of insulin (HCC) LIPID PANEL Routine 12/18/2022 1:10 PM CDT Encounter to establish care Uncontrolled diabetes mellitus with hypoglycemia, without long-term current use of insulin (HCC) DIABETIC EYE EXAM Routine 12/18/2022 PAP AND HIGH RISK HPV, REFLEX TO GENOTYPING Routine 08/29/2022 11:50 AM COLLECTIONS SPECIALIST Screening for malignant neoplasm of the cervix from Last 3 Months or Most Recently Relevant to Health Maintenance Results * eGFR (06/24/2024 1:35 PM COLLECTIONS SPECIALIST) eGFR >90 >=60 mL/min/1. 73 m2 Comment: Interpretive Data Reference Interval Normal >/= 90 mL/min/1.73m2 Mildly decreased* 60 - 89 mL/min/1.73m2 Mildly to moderately decreased 45 - 59 mL/min/1.73m2 Moderately to severely decreased 30 - 44 mL/min/1.73m2 Severely decreased 15 - 29 mL/min/1.73m2 Kidney Failure < 15 mL/min/1.73m2 *Relative to young adult level Estimated glomerular filtration rate is determined by the 2020 CKD-EPI equation recommended by the National Kidney Foundation (A Unifying Approach to GFR Estimation: Recommendations of the NKF-ASK Task Force on Reassessing the Inclusion of Race in Diagnosing Kidney Disease, JASN 202). The CKD-EPI equation should not be used for patients with unstable renal function and has not been validated in children and those over 70. Current interpretive data was last reviewed 2021. Blood 06/24/2024 1:35 PM COLLECTIONS SPECIALIST 06/24/2024 1:43 PM COLLECTIONS SPECIALIST us Vasu Dwyer MD LAB BLOOD ORDERABLES Final Result [facility] ([place]) 1 [facility] [place] [address] * Albumin Creatinine Ratio, Urine (12/18/2022 4:30 PM CDT) Albumin Ur 28.8 mg/L [facility] ([place]) Comment: Collection date/time has been modified to: 16:30:00. Previous collection date/time: 09:37:00. Interpretive Data No reference range established. Current interpretive data was last revised 2018. Testing performed by: [address] [address] Creatinine Ur 148.6 mg/dL [facility] ([place]) Comment: Collection date/time has been modified to: 16:30:00. Previous collection date/time: 09:37:00. Interpretive Data No reference range established. Current interpretive data was last revised 2018. Testing performed by: [facility], [address] [place] [address]., [id number] Albumin Creatinine Ratio, Ur 19 1 - 29 mg/g [facility] ([place]) Comment: Collection date/time has been modified to: 16:30:00. Previous collection date/time: 09:37:00. Testing performed by: [address] [address] Urine 12/18/2022 4:30 PM CDT 12/19/2022 12:45 PM CDT us Bertha Claire NP LAB URINE ORDERABLES Edited Resu lt - Final [facility] ([place]) 1 [facility] [place] [address] * (ABNORMAL) Hemoglobin A1c (12/18/2022 1:10 PM CDT) Hgb A1C 5.7(H) 4.0 - 5.6 % [facility] ([place]) Comment:Testing performed by : [facility], [address] [place] [address]., [id number] Estimated Average Glucose 117 mg/dL [facility] ([place]) Comment: The ADA recommends reporting an estimated Average Glucose (eAG) with all Hemoglobin A1c results using the equation derived from a study of 507 normal and diabetic adults. Minority populations were underrepresented and children were not included. (Diabetes Care 31:4782-5617, 2008). The eAG is not equivalent to a fasting glucose. Testing performed by: [facility], [address] [place] [address]., [id number] Blood 12/18/2022 1:10 PM CDT 12/18/2022 8:19 PM CDT us Bertha Claire NP LAB BLOOD ORDERABLES Final Resul t [facility] ([place]) 1 [facility] Department [place] [address] * (ABNORMAL) Lipid panel (12/18/2022 1:10 PM CDT) Cholesterol 129 30 - 199 mg/dL [facility] ([place]) Comment: Interpretive Data Ages < or = 19 years Acceptable: <170 mg/dL Borderline high: 170-199 mg/dL High: >or= 200 mg/dL Ages > or = 20 years Desirable: <200 mg/dL Borderline high: 200-239 mg/dL High: >or= 240 mg/dL Literature References: 1. Expert Panel on Integrated Guidelines for Cardiovascular Health and Risk Reduction in Children and Adolescents. Pediatrics 2011;128:S213 2. NCEP Expert Panel. Circulation 2004;110:227 Current Interpretive Data was last revised on 2018. Testing performed by: [facility], [address] [place] [address], [place]., [address] Triglycerides 163(H) <=149 mg/dL [facility] ([place]) Comment: Interpretive Data Ages < or = 9 years Acceptable: <75 mg/dL Borderline high: 75-99 mg/dL High: >or= 100 mg/dL Ages 10 to 20 years Acceptable: <90 mg/dL Borderline high: 90-129 mg/dL High: >or= 130 mg/dL Ages > or = 20 years Desirable: <150 mg/dL Borderline high: 150-199 mg/dL High: 200-499 mg/dL Very high: >or= 499 mg/dL Literature References: 1. Expert Panel on Integrated Guidelines for Cardiovascular Health and Risk Reduction in Children and Adolescents. Pediatrics 2011;128:S213 2. NCEP Expert Panel. Circulation 2004;110:227 Current Interpretive Data was last revised on 2018. Testing performed by: [facility], [address] [place] [address]., [address] HDL 32(L) >=40 mg/dL [facility] ([place]) Comment: Interpretive Data Ages < or = 19 years Acceptable: >45 mg/dL Borderline low: 40-45 mg/dL Low: <40 mg/dL Ages > or = 20 years Desirable: >or= 60 mg/dL Low: <40 mg/dL Literature References: 1. Expert Panel on Integrated Guidelines for Cardiovascular Health and Risk Reduction in Children and Adolescents. Pediatrics 2011;128:S213 2. NCEP Expert Panel. Circulation 2003;110:227 Current Interpretive Data was last revised on 2018. Testing performed by: [facility], [address] [place] [address]., [address] LDL, calculated 64 <=129 mg/dL [facility] ([place]) Comment: Interpretive Data Ages < or = 19 years Acceptable: <110 mg/dL Borderline high: 110-129 mg/dL High: >or= 130 mg/dL Ages > or = 20 years Optimal: <100 mg/dL Near optimal: 100-129 mg/dL Borderline high: 130-159 mg/dL High: >160 mg/dL Literature References: 1. Expert Panel on Integrated Guidelines for Cardiovascular Health and Risk Reduction in Children and Adolescents. Pediatrics 2011;128:S213 2. NCEP Expert Panel. Circulation 2004;110:227 Current Interpretive Data was last revised on 2018. Testing performed by: [facility], [address] [place] [address]., [address] Non-HDL Cholesterol 97 mg/dL [facility] ([place]) Comment: Interpretive Data Ages < or = 19 years Acceptable: <120 mg/dL Borderline high: 120-144 mg/dL High: >145 mg/dL Ages > or = 20 years When triglycerides are >200 mg/dL, Non-HDL cholesterol is a secondary target of therapy with treatment goals that are 30 mg/dL greater than the LDL cholesterol target. Literature References: 1. Expert Panel on Integrated Guidelines for Cardiovascular Health and Risk Reduction in Children and Adolescents. Pediatrics 2011;128:S213 2. NCEP Expert Panel. Circulation 2004;110:227 Current Interpretive Data was last revised on 2018. Testing performed by: [facility], [address] [place] [address]., [address] Chol/HDL ratio 4 [facility] ([place]) Comment:Testing performed by : [facility], [address] [place] [address]., [address] Blood 12/18/2022 1:10 PM CDT 12/18/2022 8:19 PM CDT Bertha Claire NP LAB BLOOD ORDERABLES Final Resul t [facility] ([place]) 1 [facility] [place] [address] * Diabetic Eye Exam (12/18/2022) Historical Provider HEALTH MAINTENANCE Final Result * Pap and High Risk HPV, reflex to Genotyping (08/29/2022 11:50 AM COLLECTIONS SPECIALIST) Thin prep (Pap test) 08/29/2022 11:50 AM COLLECTIONS SPECIALIST 08/29/2022 11:50 AM COLLECTIONS SPECIALIST Narrative PATHOLOGY CH - 08/31/2022 2:55 PM COLLECTIONS SPECIALIST [facility] Department of Pathology [address] [place] [address], [place] [address] Final Report with Addendum Note to Patients: This report may contain a detailed description of human tissue sent by a health care provider to the laboratory for pathologic evaluation. The content of this report is essential for diagnosis and may provide important critical findings. This information may be unfamiliar to patients to review without a medical professional present. It is advised that the patient review this report in the presence of a health care provider who can answer questions and explain the details. Patient Name: CAIO HUNTLEY Address: [address] [place] [address] Gender: F : 1990 (Age: 32) Service: Location: N : [id number] [facility] #: [id number] Patient Type: SPECIMEN Taken: 08/29/2022 Received: 08/29/2022 Accessioned:: 08/30/2022 Reported: 08/31/2022 Physician(s): Evelyn Dobson D.O. Diagnosis: Source of Specimen: SCREENING THIN PREP IMAGED PAP w/ HPV Specimen Adequacy: - Satisfactory for evaluation; endocervical/transformation zone component present General Category: - Negative for intraepithelial lesion or malignancy INDU Burgess(ASCP) Report Electronically Reviewed and Signed Out By INDU Burgess(ASCP) 08/31/2022 14:55:47Addenda: HPV Test Interpretation NEGATIVE for types 16, 18, 31, 33, 35, 39, 45, 51, 52, 56, 58, 59, 66 and 68. Test performed utilizing Gen-Probe Aptima assay. INDU Baltazar(ASCP)Report Electronically Reviewed and Signed Out By INDU Baltazar(ASCP) 08/31/2022 10:20:53 Specimen(s) Received: A: SCREENING THIN PREP IMAGED PAP w/ HPV Clinical History: Last Menstrual Period: 04/10/22 The Pap test is a screening test used to aid in the detection of cervical cancer and its precursors. It should not be the sole means by which malignant and premalignant lesions are diagnosed. Both false negative and false positive results may occur. It also has poor sensitivity for the detection of endometrial lesions and should not be used to evaluate suspected endometrial abnormalities. For these reasons it is most important to obtain Pap tests at regular intervals. The performance characteristics of some immunohistochemical stains, fluorescence in-situ hybridization tests and immunophenotyping by flow cytometry cited in this report (if any) were determined by the Surgical Pathology Department at [facility] as part of an ongoing quality assistant program and in compliance with federally mandated regulations drawn from the Clinical Laboratory Improvement Act of 1988 (CLIA '88). Some of these tests rely on the use of analyte specific reagents and are subject to specific labeling requirements by the US Food and Drug Administration. Such diagnostic tests may only be performed in a facility that is certified by the Department of Health and Human Services as a high complexity laboratory under CLIA '88. The FDA has determined that such clearance or approval is not necessary. This test is used for clinical purposes. It should not be regarded as investigational or for research. Nevertheless, federal rules concerning the medical use of analyte specific reagents require that the following disclaimer be attached to the report: This test was developed and its performance characteristics determined by the Surgical Pathology Department [facility]. It has not been cleared or approved by the U. S. Food and Drug Administration. Julia Rivera DO LAB CYTOLOGY ORDERABLES Final Result [facility] [address] [place] [address] from Last 3 Months or Most Recently Relevant to Health Maintenance Insurance [facility] Advance Directives For more information, please contact: [phone] * Full Code (Latest Code Status on File) Date Activated Date Inactivated Comments 12/24/2017 7:46 AM 12/24/2017 8:13 AM Full CPR in ca se of cardiopulmonary arrest Care Teams Flash Welder Relationship Specialty Start Date End Date Rudolph Zayas PA [address] [place] [address] PCP - General Family Practice 04/05/23
--- OUTSIDE RECORDS SUMMARY | 2024-11-30 17:05 | XMS_ITS | Referral Summary ---
Author Organization [facility] Address [address] [place] [address] Care Team Providers Care Card Table Attendant Name Role Phone Rudolph Zayas Primary Care Provider [phone] Encounters Date Type Department Care Team Description 09/02/2024 Telephone [facility] Pulmonary at [address] [place] [address] Sarah De La Rosa LPN Prior Auth 09/01/2024 Orders Only [facility] Pulmonary at [address] [place] [address] Sarah De La Rosa LPN from Last 3 Months Allergies No known active allergies Medications Mirena IUD 08/30/19 Active metFORMIN (GLUCOPHAGE) 500 mg tabletIndications: Uncontrolled diabetes mellitus with hypoglycemia, without long-term current use of insulin (HCC) Take 1 tablet (500 mg total) by mouth daily with breakfast 90 tablet 12/19/19 23 Active blood-glucose sensor deviceIndications: Uncontrolled [...] stability Assessment & Plan (08/08/2023 2:28 PM CROSS TIE MAKER): PET-CT with minimal uptake not significant. Repeat [...] therapy Assessment & Plan (08/08/2023 2:26 PM CROSS TIE MAKER): Pulmonary function testing negative. Some symptoms consistent [...] loss Assessment & Plan (08/08/2023 2:29 PM CROSS TIE MAKER): Unchanged. Currently undergoing further workup. Methacholine challenge [...] 09/27/2022 Assessment & Plan (09/27/2022 10:58 AM CROSS TIE MAKER): Chronic. Goal <130/80. -Start Olemsartan daily. Risks/benefits and alternatives discussed -low-salt diet. Handout given -follow-up 3 months for re-evaluation Type 2 diabetes mellitus wit hout complication, without long-term current use of insulin 09/27/2022 Assessment & Plan (09/27/2022 10:58 AM CROSS TIE MAKER): Dm type 2 with ?complications(diabetic neuropathy) Recent A1C. No Neuropathy on foot exam Continue low carb diet Next A1C - 12/2022 Most recent Microalbumin - Refer to [facility] for counseling Dilated retinal eye exam -due now BP not at goal <130/80 off med - will start ARB Vaccines - PCV, Flu, COVID recommended Anxiety and depression 09/27/2022 Assessment & Plan (09/27/2022 10:59 AM CROSS TIE MAKER): Chronic and stable. PHQ 2 score 2. No SI/HI. Patient will continue to follow with psychiatry for this current condition Class 3 severe obesity due t o excess calories with serious comorbidity and body mass index (BMI) of 50.0 to 59.9 in adult 09/27/2022 Immunizations Immunization Administration Dates Next Due Influenza, Unspecified 12/18/2022(Deferred: [place] ent Refused) Social History Tobacco Use Types Packs/Day Years [...] often do you attend chur ch or latter day services? Never 02/26/2023 Do you belong to any clubs o r organizations such as muslim groups, unions, fraternal or athletic groups, or [...] you are drinking? Patient does not drink 4 Q3: How often do you have si [...] staff should administer the PHQ-9) 6 02/26/2023 [facility] - Occupational Stress Questionnaire Answer Date Recorded [...] place to sleep or slept in a snf (including now)? No 02/26/2023 Personal Safety Answer Date Recorded Have you ever been in or are you currently in a harmful physical or emotional relationship or is someone making you feel afraid or unsafe? Denies 06/24/2024 Comments No Sex and Gender Information Value Date Recorded Sex Assigned at Not on file Legal Sex Female 10:17 AM CROSS TIE MAKER Gender Identity Female 01/31/2024 9:44 AM CDT Sexual Orientation Straight 01/31/2024 9: 44 AM CDT Occupation Industry Job Start Date Job End Date [employer] Not on file Not on file Not on file Last Filed Vital Signs Vital Sign Reading Time Taken Comments Blood Pressure 144/88 08/07/2024 11:26 AM CROSS TIE MAKER Pulse 112 08/07/2024 11:26 AM CROSS TIE MAKER Temperature 36.2 C (97.2 F) 08/07/2024 11:26 AM CROSS TIE MAKER Respiratory Rate 18 06/24/2024 1:28 PM CROSS TIE MAKER Oxygen Saturation 95% 08/07/2024 11: 26 AM CROSS TIE MAKER Inhaled Oxygen Concentration - - Weight 136.1 kg (300 lb 1.6 oz) 024 11:26 AM CROSS TIE MAKER Height 157.5 cm (5' 2 ) 08/07/2024 11:2 6 AM CROSS TIE MAKER Body Mass Index 54.89 08/07/2024 11:26 AM CROSS TIE MAKER Plan of Treatment Not on file Procedures Procedure Name Priority Date/Time Associated Diagnosis Comments EGFR STAT 06/24/2024 1:35 PM CROSS TIE MAKER ALBUMIN CREATININE RATIO, URINE Routine 12/18/2022 4:30 [...] REFLEX TO GENOTYPING Routine 08/29/2022 11:50 AM CROSS TIE MAKER Screening for malignant neoplasm of the cervix from Last 3 Months or Most Recently Relevant to Health Maintenance Results * eGFR (06/24/2024 1:35 PM CROSS TIE MAKER) eGFR >90 >=60 mL/min/1. 73 m2 Comment: [...] of Race in Diagnosing Kidney Disease, JASN 2020). The CKD-EPI equation should not be used for patients with unstable renal function and has not been validated in children and those over 70. Current interpretive data was last reviewed 2021. Blood 06/24/2024 1:35 PM CROSS TIE MAKER 06/24/2024 1:43 PM CROSS TIE MAKER us Vasu Dwyer MD LAB BLOOD ORDERABLES Final Result [facility] ([place]) [address] [facility] Department [place] [address] * Albumin Creatinine Ratio, Urine (12/18/2022 4:30 PM CDT) Albumin Ur 28.8 mg/L [facility] Schneider ([place]) Comment: Collection date/time has been modified to: 16:30:00. Previous collection date/time: 09:37:00. Interpretive Data No reference range established. Current interpretive data was last revised 2018. Testing performed by: [facility], [address] [place] [address]., [address] Creatinine Ur 148.6 mg/dL VENANCIO ALBRECHT ([place]) Comment: Collection date/time has been modified to: 16:30:00. Previous collection date/time: 09:37:00. Interpretive Data No reference range established. Current interpretive data was last revised 2018. Testing performed by: [facility], [address] [place] [address]., [address] Albumin Creatinine Ratio, Ur 19 1 - 29 mg/g [facility]NCIO ALBRECHT ([place]) Comment: Collection date/time has been modified to: 16:30:00. Previous collection date/time: 09:37:00. Testing performed by: [facility], [address] [place] [address]., [address] Urine 12/18/2022 4:30 PM CDT 12/19/2022 12:45 PM CDT us Bertha Claire NP LAB URINE ORDERABLES Edited Resu lt - Final [facility] ALBRECHT ([place]) [address] [facility] Department [place] [address] * (ABNORMAL) Hemoglobin A1c (12/18/2022 1:10 PM CDT) Hgb A1C 5.7(H) 4.0 - 5.6 % [facility] ALBRECHT ([place]) Comment:Testing performed by : [address] [address] Estimated Average Glucose 117 mg/dL VENANCIO ALBRECHT ([place]) Comment: The ADA recommends reporting an estimated Average Glucose (eAG) with all Hemoglobin A1c results using the equation derived from a study of 507 normal and diabetic adults. Minority populations were underrepresented and children were not included. (Diabetes Care 31:5599-4598, 2008). The eAG is not equivalent to a fasting glucose. Testing performed by: [address] [address] Blood 12/18/2022 1:10 PM CDT 12/18/2022 8:19 PM CDT us Bertha Claire NP LAB BLOOD ORDERABLES Final Resul t [facility] ALBRECHT ([place]) 1 [facility] Department [place] [address] * (ABNORMAL) Lipid panel (12/18/2022 1:10 PM [...] last revised on 2018. Testing performed by: [address] [address] Triglycerides 163(H) <=149 mg/dL [facility] ALBRECHT ([place]) [...] last revised on 2018. Testing performed by: [address], [place]., [address] HDL 32(L) >=40 mg/dL VE[facility]NCIO ALBRECHT ([place]) Comment: Interpretive Data [...] last revised on 2018. Testing performed by: [address] [address] LDL, calculated 64 <=129 mg/dL [facility] ALBRECHT ([place]) Comment: Interpretive Data [...] last revised on 2018. Testing performed by: [facility], [address] [place] [address]., [address] Non-HDL Cholesterol 97 mg/dL [facility]IO ALBRECHT ([place]) Comment: Interpretive Data [...] last revised on 2018. Testing performed by: [facility], [address] [place] [address]., [address] Chol/HDL ratio 4 AMEE Mason TRENA ([place]) Comment:Testing performed by : [facility], [address] [place] [address], [address] Blood 12/18/2022 1:10 PM CDT 12/18/2022 8:19 PM CDT Bertha Claire NP LAB BLOOD ORDERABLES Final Resul t VE[facility]NCIO TRENA ([place]) 1 [facility] [place] [address] * Diabetic Eye Exam (12/18/2022) us Historical Provider HEALTH MAINTENANCE Final Result * Pap and High Risk HPV, reflex to Genotyping (08/29/2022 11:50 AM CROSS TIE MAKER) Thin prep (Pap test) 08/29/2022 11:50 AM CROSS TIE MAKER 08/29/2022 11:50 AM CROSS TIE MAKER Narrative PATHOLOGY CH - 08/31/2022 2:55 PM CROSS TIE MAKER [facility] Department of Pathology [address] [place] [address] Final Report with Addendum Note to [...] the details. Patient Name: CAIO HUNTLEY Address: [address] [place] [address] Gender: F : 1990 (Age: 32) Service: Location: N : [id number] [facility] #: [id number] Patient Type: SPECIMEN Taken: 08/29/2022 Received: 08/29/2022 [...] Electronically Reviewed and Signed Out By INDU Baltazar(ASC) 08/31/2022 10:20:53 Specimen(s) Received: A: SCREENING THIN [...] determined by the Surgical Pathology Department at [facility] as part of an ongoing quality control head program and in compliance with federally mandated [...] characteristics determined by the Surgical Pathology Department [facility]. It has not been cleared or approved by the U. S. Food and Drug Administration. Julia Rivera DO LAB CYTOLOGY [place] [address] [place] [address] from Last 3 Months or Most Recently Relevant to Health Maintenance Insurance [facility] Advance Directives For more information, please contact: [phone] * Full Code (Latest Code Status on File) Date Activated Date Inactivated Comments 12/24/2017 7:46 AM 12/24/2017 8:13 AM Full CPR in ca se of cardiopulmonary arrest Care Teams Card Table Attendant Relationship Specialty Start Date End Date Rudolph Zayas PA [address] [place] [address] PCP - General Family Practice 04/05/23
--- OUTSIDE RECORDS SUMMARY | 2024-11-30 17:05 | XMS_ITS ---
Author Organization [facility] Address [address] [place] [address] Care Team Providers Care Bus Boy Name Role Phone Tressa Castro Primary Care Provider REASON FOR VISIT New Patient Psych Eval Encounters Encounter Location Date Provider Diagnosis [address] [place] [address] 07/19/2023 Tressa Castro Plan Of Treatment No Information Progress Notes * Jeremías HUNTLEYOB: [birth year] (34 yo F)Acc No.[id number]:07/19/2023 UNLOCKED PROGRESS NOTE Patient: Ann Marie GONZALEZ Provider: Dilan Castro DNP, APRN, PMHNP-BC :1990 A ge:33 Y S ex:Female Date:07/19/2023 Address:[address] [place] [id number] Subjective: * Chief Complaints: * 1 . New Patient Psych Eval. * Medical History: Objective: * Vitals: Assessment: Plan: * Treatment: * * Electronic signature of Audra Kunz , [id number] on 11/30/2024 at 05:05 PM CDT Sign off status: Pending * Provider: Dilan Castro DNP, APRN, PMHNP-BC Date: 09/18/2022 Generated for Printing/Faxing/eTransmitting on: 0 11/30/2024 05:05 PM CDT
--- OUTSIDE RECORDS SUMMARY | 2024-11-30 17:05 | XMS_ITS | Patient Health Record ---
Author Organization [facility] Address [address] [place] [address] Care Team Providers Care Department Of Mathematics Chair Name Role Phone Tressa Castro Primary Care Provider [phone] Reason For Referral No Information Plan Of Treatment No Information Insurance Providers Payer Name Payer Address Payer Phone Subscriber Number Group Number Insured Name Patient Relationship to Insured Coverage Start Date Coverage End Date R [address] [address] [place] [address] [id number] Ann Marie Epstein Self - patient is the insured 3 MEDICAID [address] [place] [address] [id number] Ann Marie Epstein Self - patient is the insured 3
--- OUTSIDE RECORDS SUMMARY | 2024-11-30 17:05 | XMS_ITS | Clinical Summary ---
Author Organization [facility] Address [address] [place] [address] Phone Care Team Providers Care Creative Guru Name Role Phone Rudolph Zayas Primary Care Provider [phone] Medications No known medications Social History Tobacco Use Types Packs/Day Years Used Date Smoking Tobacco: Never Assessed Comments No Sex and Gender Information Value Date Recorded Sex Assigned at Not on file Legal Sex Female 7:07 PM CDT Gender Identity Not on file Sexual Orientation Not on file Last Filed Vital Signs Vital Sign Reading Time Taken Comments Blood Pressure 150/88 06/25/2024 6:14 PM EXECUTIVE SECRETARY Pulse 84 06/25/2024 6:14 PM EXECUTIVE SECRETARY Temperature 36.6 C (97.8 F) 06/25/2024 2:25 PM EXECUTIVE SECRETARY Respiratory Rate 16 06/25/2024 6:14 PM EXECUTIVE SECRETARY Oxygen Saturation 98% 06/25/2024 6:14 PM EXECUTIVE SECRETARY Inhaled Oxygen Concentration - - Weight 131.5 kg (290 lb) 06/25/2024 2:25 PM EXECUTIVE SECRETARY Height 157.5 cm (5' 2 ) 06/25/2024 2:25 PM EXECUTIVE SECRETARY Body Mass Index 53.04 06/25/2024 2:25 PM EXECUTIVE SECRETARY Plan of Treatment Health Maintenance Due Date Last Done Comments Hepatitis C Virus (HCV) Screening 1990 Hepatitis B Immunization (1 of 3 - 19+ 3-dose series) 2009 Pap Smear 2011 Cervical Cancer Screening (CCS) 01/05/2020 HPV/Cotest 01/05/2020 Influenza Immunization (#1) 2024 SARS-COV-2 Immunization ( season) 2024 12/05/2020, 11/14/2020 Respiratory Syncytial Virus (RSV) Immunization (Adult) (1 - 1-dose 75+ series) 2065 DTaP/Tdap/Td Immunization Discontinued 2015, 07/14/2015 TdaP Immunization Completed 01/25/2016, 07/14/2015 Meningococcal Immunization (ACWY) Aged Out No longer eligible based on patient's age to complete this topic Pneumococcal Immunization Combined Aged Out No longer eligible based on patient's age to complete this topic Rotavirus Immunization Aged Out No lo nger eligible based on patient's age to complete this topic Insurance MEDICAID [employer] Care Teams Creative Guru Relationship Specialty Start Date End Date Rudolph Zayas PAC [address] [place] [address] PCP - General Physician Sanding Machine Operator Or Tender 06/25/24
[2024-11-30 17:10] VITALS: BP 145/84; PULSE 99; RESP 16; TEMP 36.6; O2SAT 98
--- NOTE | 2024-11-30 18:13 | ED.GENADULT ---
HPI - General Adult General Chief complaint: Nausea/Vomiting/Diarrhea Stated complaint: Dizziness/Vomiting Source: patient Mode of arrival: ambulatory Limitations: no limitations History of Present Illness HPI narrative: Pt presents for evaluation of this sensation of the room spinning. Symptom onset 1 week ago. Her symptoms were initially intermittent but in last 24 hours have become more persistent. She states that moving from sitting to standing and turning her induce her symptoms. She has associated nausea and vomiting. She denies any headache, lateralizing deficits, cough, shortness of breath, chest pain, urinary symptoms. She states she is diabetic but her BS are normal. She states her BP has also been fairly normal. She denies any marijuana use or illicit drug use. Related Data Home Medications ?Medication ?Instructions ?Recorded ?Confirmed ?Last Taken ?Type buspirone 15 mg tablet mg 05/15/24 Unknown History losartan 25 mg tablet mg 05/15/24 Unknown History amlodipine 10 mg tablet mg 08/05/24 Unknown History bupropion HCl 150 mg tablet,12 hr mg PO 08/05/24 Unknown History sustained-release fluticasone 100 mcg-salmeterol 50 inhalation 08/05/24 Unknown History mcg/dose blistr powdr for inhalation (Advair Diskus) fluticasone 250 mcg-salmeterol 50 inhalation 08/05/24 Unknown History mcg/dose blistr powdr for inhalation (Advair Diskus) losartan 100 mg tablet mg 08/05/24 Unknown History escitalopram oxalate 20 mg tablet mg 11/30/24 Unknown History injection for lung nodule 11/30/24 Unknown History iud 11/30/24 Unknown History Allergies Allergy/AdvReac Type Severity Reaction Status Date / Time No Known Allergies Allergy Verified 11/30/24 17:08 Review of Systems Review of Systems: CONSTITUTIONAL: Denies fever, chills, or sweats. EYES: Denies visual changes, redness, or discharge. ENT: Denies rhinorrhea, congestion, sore throat, or otalgia. CARDIOVASCULAR: Denies chest pain, palpitations, or edema. RESPIRATORY: Denies cough or dyspnea. GASTROINTESTINAL: Reports nausea and vomiting. Denies abdominal pain or diarrhea. GENITOURINARY: Denies dysuria or hematuria. SKIN: Denies rash or itching. MUSCULOSKELETAL: Denies back pain, joint pain, or myalgia. NEUROLOGIC: Reports sensation of the room spinning. Denies headache, numbness, dizziness, or weakness. PSYCHIATRIC: Denies anxiety or depression. [facility] Past Medical History Medical History Pulmonary nodule Diabetes Hypertension Surgical History Surgical History History of appendectomy Family History Family History Other No acute medical problems Social History Social History Smoking status: Never smoker Alcohol intake: current Substance use: never Living arrangements: with family Gender identity (if verbalized by the patient): Female Spiritual care concerns: No Exam Narrative: GENERAL: Well-appearing, well-nourished, and in no acute distress. HEAD: Normocephalic, atraumatic. EYES: PERRLA and EOMI. ENT: Nares clear, no rhinorrhea or epistaxis. Mucous membranes moist. Oropharynx without tonsillar hypertrophy exudate or other lesions. Bilateral TMs pearly cummings nonbulging NECK: Supple. No adenopathy or masses. No carotid bruits or JVD CHEST: Clear to auscultation. No respiratory distress. No wheezes rales or rhonchi HEART: Regular rate and rhythm. No murmur heard. Normal peripheral pulses. ABDOMEN: Soft, nontender, nondistended, normal active bowel sounds. EXTREMITIES: Normal range of motion. No edema. SKIN: Warm, dry, no rash. NEURO: No focal deficits. Alert and oriented x3. PSYCH: Normal mood and affect. Course Course Emergency Course: This is a 34-year-old female who presented for evaluation of sensation that the room was spinning nausea and vomiting. This is a classic presentation of vertigo. She is neurologically intact. She does not have any urinary symptoms to suggest UTI. States no chance of . Blood pressure here slightly elevated but stable. Blood sugars have been normal. Discharge with meclizine and Zofran. Advise she struck with her primary care provider to see if they can get her in with physical therapy to treat her vertigo. She should follow up with her primary provider and go to the ER for worsening symptoms. Pt in agreement with plan of care. Level of Care: Express Care Visit Vital Signs Vital signs: Vital Signs Temperature 36.6 C 11/30/24 17:10 Pulse Rate 99 11/30/24 17:10 Respiratory Rate 16 11/30/24 17:10 Blood Pressure 145/84 H 11/30/24 17:10 Pulse Oximetry 98 11/30/24 17:10 Oxygen Delivery Room Air 11/30/24 17:10 Temperature 36.6 C 11/30/24 17:10 Pulse Rate 99 11/30/24 17:10 Respiratory Rate 16 11/30/24 17:10 Blood Pressure 145/84 H 11/30/24 17:10 Pulse Oximetry 98 11/30/24 17:10 Oxygen Delivery Room Air 11/30/24 17:10 Medical Decision Making Vital Signs Vital Signs: Vital Signs Temperature 36.6 C 11/30/24 17:10 Pulse Rate 99 11/30/24 17:10 Respiratory Rate 16 11/30/24 17:10 Blood Pressure 145/84 H 11/30/24 17:10 Pulse Oximetry 98 11/30/24 17:10 Oxygen Delivery Room Air 11/30/24 17:10 Temperature 36.6 C 11/30/24 17:10 Pulse Rate 99 11/30/24 17:10 Respiratory Rate 16 11/30/24 17:10 Blood Pressure 145/84 H 11/30/24 17:10 Pulse Oximetry 98 11/30/24 17:10 Oxygen Delivery Room Air 11/30/24 17:10 Discharge Plan Discharge Clinical Impression: Vertigo Patient Disposition: Home Condition: Stable Instructions: Antibiotic Form, Vertigo (DC) Additional Instructions: PLEASE SPEAK WITH YOUR PRIMARY CARE PROVIDER TO SEE IF THEY CAN REFER YOU TO PHYSICAL THERAPY TO TREAT YOUR VERTIGO Patient Language: Maori Prescriptions: New meclizine 25 mg tablet 25 mg PO TID PRN (Reason: dizziness) Qty: 20 0RF ondansetron 4 mg tablet,disintegrating 4 mg PO Q8H PRN (Reason: nausea and vomiting) Qty: 15 0RF No Action losartan 25 mg tablet buspirone 15 mg tablet albuterol sulfate 90 mcg/actuation HFA aerosol inhaler 2 puff inhalation Q4-6H PRN (Reason: shortness of breath or wheezing) Qty: 8.5 0RF (DME) Aerochamber Plus Z Stat Spacer See Rx Instructions .Route Qty: 1 0RF Rx Instructions: As directed bupropion HCl 150 mg tablet sustained-release 12 hr PO fluticasone propion-salmeterol [Advair Diskus] 250-50 mcg/dose blister with device INHALATION amlodipine 10 mg tablet fluticasone propion-salmeterol [Advair Diskus] 100-50 mcg/dose blister with device INHALATION losartan 100 mg tablet iud escitalopram oxalate 20 mg tablet injection for lung nodule Follow-up/Referrals: Chana,JAVED Moses [Primary Care Provider] - Stand Alone Forms: Work/School Release IP Time of Disposition: 18:11
== END 2024-11-30 18:16 | disposition home or self-care (01) ==
PROVIDERS: Emergency Provider Nurse Practitioner; PCP Physician Assistant
DX: R42 Dizziness and giddiness (principal); I10 Essential (primary) hypertension; E11.9 Type 2 diabetes mellitus without complications; Z79.899 Other long term (current) drug therapy
CPT/HCPCS: 99213; G0463